=== PATIENT | female | born 2000 | race Two or more races ===

== ENCOUNTER → 2025-08-08 | Outpatient (CLI) | payer MEDICAID, SELFPAY ==
--- NOTE | 2025-08-08 14:00 | XR_ITS ---
Examination: Pelvic ultrasound, transabdominal, complete Technique: Transabdominal ultrasound of the pelvis performed using grayscale imaging Date and time of exam: August 08, 2025, 1434 hours INDICATIONS: Pelvic pain beginning 6 months ago. FINDINGS: Uterus 7.7 cm endometrial stripe 0.8 cm No uterine mass or intrauterine gestation Right ovary 3.4 cm arterial flow small follicles, the largest 15 mm Left ovary 4.4 cm arterial flow 27 x 26 mm simple cyst Mild fluid in the cul-de-sac IMPRESSION: No uterine mass or intrauterine gestation Left ovarian simple cyst 27 x 19 x 26 mm
== END | disposition home or self-care (01) ==
PROVIDERS: PCP Physician Assistant; Referring Provider Physician Assistant; Visit Provider Physician Assistant
DX: N83.292 Other ovarian cyst, left side (principal)
CPT/HCPCS: 76856